=== PATIENT | female | born 1970 | race African-American/Black ===

== ENCOUNTER 2017-12-09 09:09 | Emergency (ER) | payer MEDICAID ==
[~2017-12-09] VITALS: Ht 162.6 cm; Wt 114.0 kg
[2017-12-09 12:33] VITALS: BP 158/99
== END 2017-12-09 12:35 | disposition home or self-care (01) ==
LOC: ER 09:46
DX: H92.01 Otalgia, right ear (principal); Z88.0 Allergy status to penicillin; Z88.2 Allergy status to sulfonamides; Z87.01 Personal history of pneumonia (recurrent)
CPT/HCPCS: 99283

== ENCOUNTER 2018-09-09 09:07 | Emergency (ER) | payer MEDICAID ==
[~2018-09-09] VITALS: Ht 167.6 cm; Wt 104.0 kg
[2018-09-09] MEDS ORDERED: ACETAMINOPHEN 325MG TABLET PO ONE (12:30)
[2018-09-09 15:35] VITALS: BP 130/87
== END 2018-09-09 15:46 | disposition home or self-care (01) ==
LOC: ER 09:07
DX: F07.81 Postconcussional syndrome (principal); S63.617A Unspecified sprain of left little finger, initial encounter; I10 Essential (primary) hypertension; F41.9 Anxiety disorder, unspecified; Z90.49 Acquired absence of other specified parts of digestive tract; Z90.710 Acquired absence of both cervix and uterus; Z88.0 Allergy status to penicillin; Z88.2 Allergy status to sulfonamides; W22.8XXA Striking against or struck by other objects, initial encounter; Y93.89 Activity, other specified; Y92.89 Other specified places as the place of occurrence of the external cause; Y99.8 Other external cause status
CPT/HCPCS: 29130; 73140; 81025; 99284